=== PATIENT | male | born 1995 | race Caucasian/White ===

== ENCOUNTER 2020-11-15 15:30 | Emergency (ER) | payer BC, OTHER ==
[~2020-11-15] VITALS: Ht 170.2 cm; Wt 58.2 kg
[~2020-11-15 15:30] MED LIST: /AUGM875TA; COLA100C2; IBUP600T; VICO5TAB
[2020-11-15] MEDS ORDERED: BOOSTRIX/ADACEL VACCINE (DIPHTH/PERTUSS/ACELL/TETANUS) 0.5ML SYR IM ONE (17:20)
[2020-11-15] MEDS ORDERED: DERMABOND TOPICAL SKIN ADHESIVE TOP ONE (17:20)
[2020-11-15] MEDS ORDERED: CEPH500C PO (17:43)
[2020-11-15 18:07] VITALS: BP 125/77
== END 2020-11-15 18:09 | disposition home or self-care (01) ==
LOC: M ED 17:56
DX: S61.210A Laceration without foreign body of right index finger without damage to nail, initial encounter (principal); W22.8XXA Striking against or struck by other objects, initial encounter; Y92.018 Other place in single-family (private) house as the place of occurrence of the external cause; F17.210 Nicotine dependence, cigarettes, uncomplicated

== ENCOUNTER 2023-06-02 11:04 | Day surgery (SDC) | payer OTHER ==
[~2023-06-02] VITALS: Ht 170.2 cm; Wt 62.1 kg
[~2023-06-02 11:04] MED LIST changes: +CEPH500C PO
[2023-06-02] MEDS: CHLORHEXIDINE GLUCONATE 0.12 % 15ML UDC (PERIDEX ORAL RINSE) As Ordered ONE (13:20)
[2023-06-02] MEDS ORDERED: ROCURONIUM BROMIDE 50MG/5ML VIAL As Ordered ONE (13:30)
[2023-06-02] MEDS ORDERED: LIDOCAINE 2% 100MG/5ML SDV (FOR ANES.) As Ordered ONE (13:30)
[2023-06-02] MEDS ORDERED: propofoL 200 MG/20 ML VIAL As Ordered ONE (13:30)
[2023-06-02] MEDS ORDERED: ONDANSETRON 4MG 2ML VIAL As Ordered ONE (13:32)
[2023-06-02] MEDS ORDERED: fentaNYL 100 MCG/2 ML INJECTION As Ordered ONE (13:56)
[2023-06-02] MEDS ORDERED: MIDAZOLAM INJ 2MG/2ML VIAL As Ordered ONE (13:57)
[2023-06-02] MEDS ORDERED: dexmedeTOMIDine (4MCG/ML)200MCG/50ML BTL (PRECEDEX) As Ordered ONE (13:57)
[2023-06-02] MEDS: AMPICILLIN SOD/SULBACTAM SOD 3 GM in D5W MINI-BAG PLUS 100 ML IV ONE (14:06)
[2023-06-02] MEDS ORDERED: LR 1,000 ML IV SCH (14:15)
[2023-06-02] MEDS: LIDOCAINE 2% W/ EPINEPHRINE 1.7 ML DENTAL INJ As Ordered ONE (14:26)
[2023-06-02] MEDS ORDERED: GLYCOPYRROLATE INJ 0.2 MG/ML 2 ML VIAL As Ordered ONE (14:28)
[2023-06-02] MEDS ORDERED: LABETALOL 100MG/20ML VIAL As Ordered ONE (14:35)
[2023-06-02] MEDS ORDERED: KETAMINE HCL 200MG/20ML VIAL As Ordered ONE (14:54)
[2023-06-02] MEDS ORDERED: ONDANSETRON 4MG 2ML VIAL IV PRN (16:20)
[2023-06-02] MEDS ORDERED: fentaNYL 100 MCG/2 ML INJECTION IV PRN (16:20)
[2023-06-02] MEDS ORDERED: MORPHINE 2 MG/ML 1ML VIAL IV PRN (16:20)
[2023-06-02] MEDS ORDERED: oxyCODONE 5MG TAB PO PRN (16:20)
[2023-06-02 17:57] VITALS: BP 125/70; TEMP 99.1; O2SAT 98
== END 2023-06-02 18:00 | disposition home or self-care (01) ==
LOC: M SDC 11:04
PROVIDERS: ATTEND Dentist
DX: K02.9 Dental caries, unspecified (principal); K01.1 Impacted teeth; F19.10 Other psychoactive substance abuse, uncomplicated; F17.210 Nicotine dependence, cigarettes, uncomplicated
CPT/HCPCS: 88300; C9290; D7140; D7210; D9223; J0295; J1100; J1920; J2250; J2405; J3010